=== PATIENT | female | born 1965 | race Caucasian/White ===

== ENCOUNTER 2025-03-08 19:54 | Emergency (ER) | payer SELFPAY ==
[2025-03-08 20:37] VITALS: BP 178/80; PULSE 87
[2025-03-08] MEDS: Lidocaine 1% 5 ML VIAL INJECT ONE (22:00)
[2025-03-08] MEDS: Doxycycline 100 MG Cap PO ONE (22:32)
== END 2025-03-08 22:40 | disposition home or self-care (01) ==
LOC: JP.ED 19:54
DX: L02.411 Cutaneous abscess of right axilla (principal); Z88.8 Allergy status to other drugs, medicaments and biological substances; Z79.899 Other long term (current) drug therapy; Z86.16 Personal history of COVID-19
CPT/HCPCS: 10060; 87070; 87205; 99283; A9270; J2003; 87077